=== PATIENT | male | born 1985 | race Caucasian/White ===

== ENCOUNTER 2024-05-18 10:53 | Inpatient (IN) | payer OTHER ==
[~2024-05-18] VITALS: Ht 177.8 cm; Wt 115.7 kg
[2024-05-18] VITALS (19 sets, daily range): BP systolic 109–145; BP diastolic 79–102
[~2024-05-18 10:53] MED LIST: ACET500 PO; COMPAZINE10 MG PO; IBUP800 PO; LISI20 PO; Norco 5-325 Ta1 EACH PO; OMEP20ER PO; TOPROL XL25 MG PO
[2024-05-18] MEDS ORDERED: ZOLOFT25 MG PO (11:06)
[2024-05-18] MEDS ORDERED: METOPROLOL SUCC25 MG PO (11:06)
[2024-05-18] MEDS ORDERED: Ketorolac Tromethamine 30mg Vial IV ONE (11:10)
[2024-05-18] MEDS ORDERED: Ondansetron HCl 2 MG / ML 2ML Vial IV ONE (11:35)
[2024-05-18] MEDS ORDERED: HYDROmorphone HCl/Pf 1MG SYR IV ONE (11:35)
[2024-05-18] MEDS ORDERED: CeFAZolin Sodium 1,000 MG in NS 50 ML IV ONE ×2 (11:40→12:00)
[2024-05-18] MEDS ORDERED: Lactated Ringer's 1,000 ML IV SCH (12:05)
[2024-05-18] MEDS ORDERED: Bupivacaine 0.5% Inj 10 ML Vial ONE (12:40)
[2024-05-18] MEDS ORDERED: ZYRTEC10 M1 PO (12:41)
[2024-05-18] MEDS ORDERED: IRBE150 PO (12:41)
[2024-05-18] MEDS ORDERED: Midazolam HCl 1MG / ML 2ML Vial IV ONE (12:45)
[2024-05-18] MEDS ORDERED: FentaNYL Citrate 50 MCG/ML 2 ML Injection IV ONE (12:45)
[2024-05-18] MEDS ORDERED: Metoclopramide HCl 5MG / ML 2ML Vial IV ONE (12:45)
[2024-05-18] MEDS ORDERED: Scopolamine Hydrobromide Patch TOP ONE (12:45)
--- NOTE | 2024-05-18 12:45 | NUR ---
LEFT HAND 20G IV SITE FLUSHED WITH 5NS/PATENT.
[2024-05-18] MEDS ORDERED: SuccINYLCHOLINE Chloride 100 MG/5 ML 5MLSYR ONE (12:48)
[2024-05-18] MEDS ORDERED: propofoL 20 ML IV ONE (12:48)
[2024-05-18] MEDS ORDERED: FentaNYL Citrate 50 MCG/ML 2 ML Injection ONE (12:48)
[2024-05-18] MEDS ORDERED: HYDROmorphone HCl/Pf 1MG SYR ONE (12:49)
[2024-05-18] MEDS ORDERED: Dexamethasone Sod Phos 10 MG/ML 1ML VIAL ONE (12:58)
[2024-05-18] MEDS ORDERED: Phenylephrine HCl 100 MCG/ML-NS 10MLSYR (1MG/10ML) ONE (13:19)
[2024-05-18] MEDS ORDERED: Rocuronium Bromide 10 MG/ML 5ML Injection IV ONE (13:21)
[2024-05-18] MEDS ORDERED: EpiNEPhrine 1 MG/1 ML 1ML Vial ONE (13:37)
[2024-05-18] MEDS ORDERED: HYDROmorphone HCl/Pf 1MG SYR IV PRN ×2 (13:45→16:20)
[2024-05-18] MEDS ORDERED: FentaNYL Citrate 50 MCG/ML 2 ML Injection IV PRN ×3 (13:45)
[2024-05-18] MEDS ORDERED: Albuterol 2.5 MG/3 ML VIAL INH PRN (13:45)
[2024-05-18] MEDS ORDERED: Ondansetron HCl 2 MG / ML 2ML Vial ONE (14:52)
[2024-05-18] MEDS ORDERED: Ketorolac Tromethamine 30mg Vial ONE (14:53)
[2024-05-18] MEDS ORDERED: OxyCODONE HCL 5 MG TAB PO PRN (16:20)
[2024-05-18] MEDS ORDERED: Acetaminophen 325 MG TABLET PO PRN (16:25)
[2024-05-18] MEDS ORDERED: Ketorolac Tromethamine 15mg Vial IV PRN (16:25)
--- NOTE | 2024-05-18 17:37 | NUR ---
PATIENT ARRIVED TO THE FLOOR FROM PACU. POD 0 RIGHT FOREARM ORIF AND I&D PATIENT IS A&OX4. VS ARE WNL AND IS ON RA. PATIENTS RIGHT FOREARM IS IN A SPLINT WITH PARTH WRAP FROM THE ELBOW TO THE WRIST AND IS C/D/I. PATIENT DENIES NUMBNESS OR TINGLING THROUGHOUT ALL EXTREMITIES. HE IS ABLE TO WIGGLE FINGERS AND TOES WHEN ASKED. PATIENT IS TOLERATING PO INTAKE AND DENIES NAUSEA OR VOMITING AT THIS TIME. HE IS LAYING IN BED WITH CALL LIGHT IN REACH.
[2024-05-18] MEDS ORDERED: CeFAZolin Sodium 2,000 MG in NS 100 ML IV SCH (20:00)
[2024-05-18] MEDS ORDERED: Irbesartan 150 MG Tab PO SCH (21:00)
[2024-05-18] MEDS ORDERED: Sertraline HCl 50 MG Tab PO SCH (21:00)
[2024-05-18] MEDS ORDERED: Metoprolol Succinate 25 MG TABCR PO SCH (21:00)
[2024-05-18] MEDS ORDERED: Loratadine 10 MG Tab PO SCH (21:00)
[2024-05-18] MEDS ORDERED: NS 250 ML IV PRN (23:25)
[2024-05-19 02:51] VITALS: BP 108/72
--- NOTE | 2024-05-19 04:53 | NUR ---
SHIFT SUMMARY POD 1 I&D AND ORIF OF R RADIUS AND ULNA PT RESTLESS TONIGHT. PAIN MANAGED PER EMAR. PT TOLERATING PO INTAKE, VOIDING. PT HAS NOT BEEN OOB YET. PT HAS SPLINT TO R ARM, C/D/I. PT ABLE TO WIGGLES FINGERS AND DENIES ANY N/T. PT HAS BEEN ON RA FOR ALL OF THE NIGHT. VSS. NO OTHER COCERNS AT THIS TIME, CALL LIGHT WITHIN REACH
[2024-05-19 05:03] LABS: BASOPHILS ABSOLUTE AUTO 0.02 K/mm3 (0.00-0.23); BASOPHILS PERCENT AUTO 0 % (0-2); EOSINOPHILS PERCENT AUTO 0 % (0-6); Hematocrit 40.3 % (37.0-53.0); IMMATURE GRAN ABSOLUTE AUTO 0.05 K/mm3 (0.00-0.10); IMMATURE GRAN PERCENT AUTO 0 % (0-1); LYMPHOCYTES ABSOLUTE AUTO 1.31 K/mm3 (0.84-5.20); LYMPHOCYTES PERCENT AUTO 7 % (21-46); MONOCYTES ABSOLUTE AUTO 0.99 K/mm3 (0.16-1.47); MONOCYTES PERCENT AUTO 6 % (4-13); Mean Corpuscular HGB 31.7 pg (26.0-34.0); Mean Corpuscular HGB Conc 34.7 g/dL (31.5-36.5); Mean Corpuscular Volume 91 fL (80-100); Mean Platelet Volume 9.5 fL (9.1-12.4); NEUTROPHILS ABSOLUTE AUTO 15.73 K/mm3 (1.96-9.15); NEUTROPHILS PERCENT AUTO 87 % (41-73); Platelet Count 325 K/mm3 (150-400); RDW Coefficient Variation 11.7 % (11.7-14.2); RDW Standard Deviation 38.8 fL (35.1-46.3); Red Blood Cell Count 4.42 M/mm3 (4.30-5.90)
[2024-05-19 05:36] LABS: Albumin, Blood 3.2 g/dL (3.4-5.0); Albumin/Globulin Ratio 0.9 (0.8-1.8); Bilirubin, Total 0.4 mg/dL (0.1-1.0); Bun/Creatinine Ratio 12.5 (12.0-20.0); Calcium, Blood 8.6 mg/dL (8.5-10.1); Creatinine, Blood 0.96 mg/dL (0.60-1.20); Globulin, Blood 3.6 g/dL (2.2-4.0); Magnesium, Blood 2.1 mg/dL (1.6-2.4); Potassium, Blood 4.6 mmol/L (3.5-5.5); Total Protein, Blood 6.8 g/dL (6.4-8.2)
[2024-05-19 07:48] VITALS: BP 99/74
[2024-05-19] MEDS ORDERED: Sertraline HCl 50 MG Tab PO SCH (09:00)
[2024-05-19] MEDS ORDERED: Irbesartan 150 MG Tab PO SCH (09:00)
[2024-05-19] MEDS ORDERED: Loratadine 10 MG Tab PO SCH (09:00)
[2024-05-19] MEDS ORDERED: Metoprolol Succinate 25 MG TABCR PO SCH (09:00)
--- NOTE | 2024-05-19 14:41 | NUR ---
PT REEDUCATED ON NO VAPING OR SMOKING ALLOWED. VERBALIZED UNDERSTANDING.
[2024-05-19 14:54] VITALS: BP 116/82
[2024-05-19] MEDS ORDERED: Acetaminophen 500 MG Tab PO SCH (16:00)
--- NOTE | 2024-05-19 17:23 | NUR ---
SUMMARY NO ACUTE CHANGES T/O SHIFT. MEDICATED PT T/O DAY PER ORDERS FOR PAIN. WORKED WITH PT. PATIENT FOUND BY PT TO BE VAPING IN ROOM. VAPE PEN TAKEN AND LOCKED UP AND PT REEDUCATED ON FIRE SAFETY. VERBALIZED UNDERSTANDING. CALL LIGHT IN REACH.
[2024-05-19 19:51] VITALS: BP 135/89
[2024-05-20 02:06] VITALS: BP 103/62
--- NOTE | 2024-05-20 04:37 | NUR ---
SHIFT SUMMARY POD 2 I&D AND ORIF OF R ULNA AND RADIUS PT ABLE TO REST DURING THE NIGHT. PAIN MANAGED PER EMAR. PT TOLERATING PO INTAKE, VOIDING. PT AMB IND IN THE ROOM. SPLING TO R FOREARM IS C/D/I. PT WIGGELS FINGERS, GOOD CAP REFILL. VSS. NO OTHER CONCERNS AT THIS TIME, CALL LIGHT WITHIN REACH
[2024-05-20] MEDS ORDERED: Omeprazole 20 MG CapCR PO SCH (06:00)
[2024-05-20 07:51] VITALS: BP 112/71
[2024-05-20 14:34] VITALS: BP 115/77
[2024-05-20] MEDS ORDERED: ACET500 PO (15:42)
[2024-05-20] MEDS ORDERED: OMEP20ER PO (15:43)
[2024-05-20] MEDS ORDERED: OXAYDO5 M1 PO (15:44)
--- NOTE | 2024-05-20 17:05 | NUR ---
SHIFT SUMMARY PT DISCHARGED AT 1600. IV DC'D WNL. CHANGED INTO PERSONAL CLOTHING. BELONGING WITH PT. SIGNIFICANT OTHER AT BEDSIDE. DISCHARGE INSTRUCTIONS GIVEN, SCRIPT GIVEN TO PT, QUESTIONS ANSWERED. PT AMBULATED SELF OUT OF ROOM TO PERSONAL VEHICLE.
== END 2024-05-20 16:08 | disposition home or self-care (01) | DRG 510 ==
LOC: ER 10:53 → SURS 10:54 → ER 14:15 → SURS 17:06
PROVIDERS: Student in an Organized Health Care Education/Training Program; ADMIT Orthopaedic Surgery Sports Medicine
PROC: 0PSH04Z Reposition Right Radius with Internal Fixation Device, Open Approach (ICD-10-PCS; principal; 2024-05-18 13:00)
PROC: 0PSK04Z Reposition Right Ulna with Internal Fixation Device, Open Approach (ICD-10-PCS; 2024-05-18 13:00)
DX: S52.91XB Unspecified fracture of right forearm, initial encounter for open fracture type I or II (principal); J96.01 Acute respiratory failure with hypoxia; S52.201B Unspecified fracture of shaft of right ulna, initial encounter for open fracture type I or II; S01.81XA Laceration without foreign body of other part of head, initial encounter; V29.91XA Electric (assisted) bicycle rider (driver) (passenger) injured in unspecified traffic accident, initial encounter; E78.5 Hyperlipidemia, unspecified; K21.9 Gastro-esophageal reflux disease without esophagitis; E66.9 Obesity, unspecified; I10 Essential (primary) hypertension; F10.11 Alcohol abuse, in remission; G47.33 Obstructive sleep apnea (adult) (pediatric); F17.210 Nicotine dependence, cigarettes, uncomplicated; F32.A Depression, unspecified; Z88.0 Allergy status to penicillin; Z88.1 Allergy status to other antibiotic agents; Z91.038 Other insect allergy status; Z79.899 Other long term (current) drug therapy; Z71.6 Tobacco abuse counseling; Z68.36 Body mass index [BMI] 36.0-36.9, adult
CPT/HCPCS: 36415; 70450; 73090; 80053; 83735; 85025; 94760; 96365-59; 96375-59; 97116; 97161; 97165; 99285-25; A9270; C1713; J0171; J0330; J0690; J1100; J1170; J1885; J2250; J2371; J2405; J2704; J2765; J3010; J7050; J7120